=== PATIENT | male | born 1990 | race Caucasian/White ===

== ENCOUNTER 2021-03-16 23:20 | Emergency (ER) | payer OTHER ==
[~2021-03-16] VITALS: Ht 175.3 cm; Wt 65.8 kg
[2021-03-17] MEDS ORDERED: BENADRYL ALLERG25 MG PO (01:27)
[2021-03-17] MEDS ORDERED: MEDROLPACK PO (01:27)
[2021-03-17] MEDS ORDERED: ACETAMINOPHEN650 M2 (01:30)
== END 2021-03-17 01:38 | disposition home or self-care (01) ==
LOC: ER 23:20
DX: T78.40XA Allergy, unspecified, initial encounter (principal); L30.9 Dermatitis, unspecified; R21 Rash and other nonspecific skin eruption